=== PATIENT | female | born 1965 | race Caucasian/White ===

== ENCOUNTER 2019-01-05 04:15 | Emergency (ER) | payer BC, OTHER ==
[~2019-01-05] VITALS: Ht 170.2 cm; Wt 104.3 kg
[2019-01-05 04:18] VITALS: BP_SYST 137
--- NOTE | 2019-01-05 04:19 | NUR ---
Placed in room 6 . Placed on environment coordinator, blood pressure machine and pulse oximeter. To gown for exam. Side rails up.
--- NOTE | 2019-01-05 04:20 | NUR ---
Pt is alert and oriented. Pt C/O intermittent left arm pain that radiates to shoulder and back. Pain stated 02/24. Denies N/V/D. No signs of SOB or acute distress noted. VSS. Will continue to monitor.
--- NOTE | 2019-01-05 04:20 | NUR ---
ER MD Allison at bedside for medical evaluation.
[2019-01-05] MEDS: CLOPIDOGREL BISULFATE 75 MG TABLET PO ONE (04:30)
--- NOTE | 2019-01-05 04:35 | NUR ---
# 22 gauge angiocath placed to RAC. Use of asceptic technique. Opsite placed over site. Blood return noted. Blood for lab drawn from site. Flushed with 10 cc of normal saline. No evidence of infiltration noted. Patient tolerated well.
[2019-01-05] MEDS: ASPIRIN 81 MG TAB.CHEW PO ONE (04:53)
[2019-01-05] MEDS: NITROGLYCERIN 0.4 MG TAB.SUBL SL ONE (04:53)
[2019-01-05] MEDS: NACL 0.9% 1,000 ML IV ONE (04:53)
[2019-01-05 05:03] LABS: BASOPHILS % (AUTO) 0.6 % (0.0-2.0); EOSINOPHILS # (AUTO) 0.1 K/uL (0.0-0.4); EOSINOPHILS % (AUTO) 1.7 % (0.0-4.0); HEMATOCRIT 36.1 % (36-48); HEMOGLOBIN 11.9 g/dL (12.0-16.0); LYMPHOCYTES # (AUTO) 2.4 K/uL (1.0-5.5); LYMPHOCYTES % (AUTO) 39.6 % (20.5-51.5); MEAN CORPUSCULAR HEMOGLOBIN 26 pg (27-31); MEAN CORPUSCULAR HGB CONC 33 % (32-36); MEAN CORPUSCULAR VOLUME 78 fL (79.0-98.0); MONOCYTES # (AUTO) 0.5 K/uL (0.0-1.0); MONOCYTES % (AUTO) 7.7 % (1.7-9.3); NEUTROPHILS % (AUTO) 50.4 % (40.0-70.0); PLATELET COUNT (AUTO) 178 K/uL (130-430); RED BLOOD CELL COUNT(AUTO) 4.63 MIL/uL (4.2-6.2); RED CELL DISTRIBUTION WIDTH 14.3 % (9.0-15.0)
--- NOTE | 2019-01-05 05:10 | NUR ---
Pt resting in bed, VSS. Pt denies pain at this time. Will continue to monitor.
[2019-01-05 05:18] LABS: PROTHROMBIN TIME 10.1 SECS (9.5-12.5)
[2019-01-05] MEDS: MORPHINE 4 MG/ML INJ. SYRINGE IVP ONE (05:21)
[2019-01-05] MEDS: ONDANSETRON HCL 4 MG/2 ML VIAL IVP ONE (05:26)
[2019-01-05 05:42] LABS: CALCIUM 8.7 mg/dL (8.4-11.0); CREATININE 0.75 mg/dL (0.55-1.30); POTASSIUM 3.4 mmol/L (3.5-5.1)
[2019-01-05 05:48] LABS: ALBUMIN 3.2 g/dL (3.4-4.8); TOTAL BILIRUBIN 0.2 mg/dL (0.0-1.0)
[2019-01-05 06:08] VITALS: BP_SYST 127
--- NOTE | 2019-01-05 06:08 | NUR ---
Patient given written and verbal discharge instructions and verbalizes understanding. ER MD Allison discussed with patient the results and treatment provided. Patient in stable condition. ID arm band removed. IV catheter removed intact and dressing applied, no active bleeding. Rx of Naprosyn given. Patient educated on pain management and to follow up with PMD. Pain Scale 0/10. Opportunity for questions provided and answered. Medication side effect fact sheet provided.
== END 2019-01-05 06:08 | disposition home or self-care (01) ==
LOC: SED 04:15
DX: M54.10 Radiculopathy, site unspecified (principal); R07.89 Other chest pain; M79.7 Fibromyalgia
CPT/HCPCS: 36415; 71045; 80053; 82150; 82550; 83605; 83690; 83880; 84484; 85025; 85610; 85730; 87040; 93005; 99284; J7030

== ENCOUNTER 2019-07-24 04:46 | Emergency (ER) | payer BC, OTHER ==
[~2019-07-24] VITALS: Ht 167.6 cm; Wt 99.8 kg
[2019-07-24 04:50] VITALS: BP_SYST 130
--- NOTE | 2019-07-24 05:00 | NUR ---
Patient to ER bed 8 to gown for evaluation. Side rails up. Report given to DOLLY DONATO.
--- NOTE | 2019-07-24 05:05 | NUR ---
PT IS ALERT AND ORIENTED. PT C/O LEFT SHOULDER PAIN X 1 DAY RADIATING TO LEFT LOWER ARM AND NECK, WITH NUMBNESS TO PINKY AND RING FINGER. DENIES N/V/D. VSS. WILL CONTINUE TO MONITOR.
--- NOTE | 2019-07-24 05:10 | NUR ---
ER MD ESPARZA AT BEDSIDE EXAMINING PATIENT.
[2019-07-24 05:40] VITALS: BP_SYST 130
--- NOTE | 2019-07-24 05:40 | NUR ---
Patient given written and verbal discharge instructions and verbalizes understanding. ER MD ESPARZA discussed with patient the results and treatment provided. Patient in stable condition. ID arm band removed. Rx of INDOMETHACIN given. Patient educated on pain management and to follow up with PMD. Pain Scale 1/10. Opportunity for questions provided and answered. Medication side effect fact sheet provided.
== END 2019-07-24 05:40 | disposition home or self-care (01) ==
LOC: SED 04:46
DX: S16.1XXA Strain of muscle, fascia and tendon at neck level, initial encounter (principal); G58.8 Other specified mononeuropathies; F17.290 Nicotine dependence, other tobacco product, uncomplicated; X50.0XXA Overexertion from strenuous movement or load, initial encounter; Y93.89 Activity, other specified; Y92.89 Other specified places as the place of occurrence of the external cause; Y99.8 Other external cause status
CPT/HCPCS: 99283

== ENCOUNTER 2019-12-06 15:34 | Emergency (ER) | payer BC, OTHER, SELFPAY ==
[~2019-12-06] VITALS: Ht 167.6 cm; Wt 99.8 kg
[2019-12-06 15:34] VITALS: BP_SYST 98
--- NOTE | 2019-12-06 15:34 | NUR ---
Patient to ER surge tent for evaluation. Side rails up.
--- NOTE | 2019-12-06 15:35 | NUR ---
Patient came from home for evaluation of bodyaches and runny nose since yesterday.
--- NOTE | 2019-12-06 16:21 | NUR ---
ER at bedside examining patient.
[2019-12-06] MEDS ORDERED: KETOROLAC TROMETHAMINE 60 MG/2 ML VIAL IM ONE (16:30)
[2019-12-06 17:51] VITALS: BP_SYST 98
--- NOTE | 2019-12-06 17:51 | NUR ---
Patient given written and verbal discharge instructions and verbalizes understanding. ER MD discussed with patient the results and treatment provided. Patient in stable condition. ID arm band removed. Rx of robaxin given. Patient educated on pain management and to follow up with PMD. Pain Scale 0/10. Opportunity for questions provided and answered. Medication side effect fact sheet provided.
--- NOTE | 2019-12-12 13:18 | NUR ---
Patient was notified by [facility] her CoVID-[id number] "Detected" results and instructed to follow the provided Home Isolation Instructions. Patient verbalizes understanding.
== END 2019-12-06 17:51 | disposition home or self-care (01) ==
LOC: SED 15:34
DX: U07.1 COVID-19 (principal); B34.9 Viral infection, unspecified; M25.512 Pain in left shoulder
CPT/HCPCS: 71045; 99284; C9803; J1885; U0003